=== PATIENT | male | born 1950 | race Caucasian/White ===

== ENCOUNTER 2019-05-11 18:55 | Inpatient (IN) | payer MEDICARE, MEDICAID ==
[~2019-05-11] VITALS: Ht 180.3 cm; Wt 79.8 kg
[2019-05-11] MEDS ORDERED: ACETAMINOPHEN 500 MG TAB PO ONE ×2 (19:57→20:00)
[2019-05-11] MEDS ORDERED: KETOROLAC TROMETH 60MG/2ML VIAL IM ONE (22:00)
[2019-05-11] MEDS ORDERED: ALBUTEROL SULF 2.5 MG/0.5ML(0.5%) NEB SOLN NEB ONE (22:00)
[2019-05-11] MEDS ORDERED: methylPREDNISolone SOD SUCC 125 MG/2 ML VL IM ONE (22:00)
[2019-05-11] MEDS ORDERED: IPRATROPIUM BROM 0.5 MG/2.5ML INH SOL NEB ONE (22:00)
[2019-05-11] MEDS ORDERED: cefTRIAXone SOD 1,000 MG VL IV ONE (23:00)
[2019-05-11] MEDS ORDERED: SODIUM CHLORIDE 0.9% 2,000 ML IV ONE (23:00)
[2019-05-11 23:23] LABS: Basophils # (auto) 0.1 uL; Eosinophils # (auto) 0.1 uL; Eosinophils % (auto) 1.1 % (0.0-7.0); Hemoglobin 13.5 g/dL (13.5-17.5); Lymphocytes # (auto) 1.2 uL; Lymphocytes % (auto) 18.2 % (10.0-50.0); Mean Corpuscular Hemoglobin 35.3 pg (28.0-32.0); Mean Corpuscular Hgb Conc. 35.6 g/dL (32.0-36.0); Monocytes # (auto) 0.5 uL; Monocytes % (auto) 7.3 % (0.0-12.0); Neutrophils # (auto) 4.9 uL; Neutrophils % (auto) 72.4 % (37.0-80.0); Nucleated Red Blood Cells % 0.1 %; Platelet Count (auto) 244 10^3/uL (140-450); Red Blood Cells 3.84 10^6/uL (4.5-5.90); Red Cell Distribution Width 14.6 % (11.8-14.3); White Blood Cell 6.8 10^3/uL (4.4-10.8)
[2019-05-11 23:37] LABS: INR 1.02 (0.9-1.15)
[2019-05-11 23:46] LABS: Albumin 2.9 g/dL (3.4-5.0); Calcium 7.6 mg/dL (8.5-10.1); Potassium 4.3 mmol/L (3.5-5.1)
[2019-05-11 23:51] LABS: Bilirubin, Total 0.3 mg/dL (0.2-1.0)
[2019-05-12] MEDS ORDERED: cefTRIAXone 1GM/50ML D5W 50 ML IV ONE
[2019-05-12 00:17] LABS: CRP High Sensitivity 0.227 mg/dL (< 0.3)
[2019-05-12] MEDS ORDERED: IOHEXOL 350 MG/ML 100ML IJ ONE (00:20)
[2019-05-12] MEDS ORDERED: MORPHINE SULFATE 4 MG/ML SYR/VIAL IV PRN (02:00)
[2019-05-12] MEDS ORDERED: SODIUM CHLORIDE 0.9% 1,000 ML IV SCH (02:00)
[2019-05-12] MEDS ORDERED: DOCUSATE SOD 100 MG CAP PO PRN (02:00)
[2019-05-12] MEDS ORDERED: HYDROcodone-ACET 5/325MG TAB PO PRN (02:00)
[2019-05-12] MEDS ORDERED: ACETAMINOPHEN 325 MG TAB PO PRN (02:00)
[2019-05-12] MEDS ORDERED: ONDANSETRON HCL 4 MG/2 ML VIAL IV PRN (02:00)
[2019-05-12 02:52] LABS: Urine Amorphous Crystal FEW /hpf (None Seen); Urine Bacteria FEW /hpf (None Seen); Urine Blood Negative /uL (Negative); Urine Hyaline Cast FEW /lpf (0 - 2); Urine Specific Gravity 1.026 (1.001-1.035); Urine WBC <1 /hpf (0 - 3)
[2019-05-12 02:59] LABS: Alcohol, Urine < 3.0 mg/dL (0-5); Amphetamine Screen, Urine NEGATIVE (NEGATIVE); Barbiturate Scree,Urine NEGATIVE (NEGATIVE); Benzodiazephine Screen, Urine NEGATIVE (NEGATIVE); Cannabinoid Screen, Urine NEGATIVE (NEGATIVE); Cocaine Screen, Urine NEGATIVE (NEGATIVE); Opiate Scree,Urine NEGATIVE (NEGATIVE); Phencyclidine Screen, Urine NEGATIVE (NEGATIVE)
--- NOTE | 2019-05-12 04:30 | NUR ---
[facility] admit from ER [address] admitted to [facility]. Patient oriented to GUERDA MCCOLLUM [facility], primary RN, unit, room, bed, and unit policies regarding patient care and visiting hours. Patient weighed by bedscale and encouraged to call if they need something. All questions and concerns addressed, patient verbalized understanding. Bed in lowest locked position, call light within reach, side rails up x2. Will continue to monitor Q1hr and PRN.
[2019-05-12 05:53] VITALS: BP 124/60
--- NOTE | 2019-05-12 07:30 | NUR ---
Opening Shift Note Assumed care of patient, awake and alert. No S/S of distress/SOB or pain. Instructed on POC and to call for assist PRN, will continue to monitor for changes Q1hr and PRN. Fall precautions in place per safety protocol.
--- NOTE | 2019-05-12 09:45 | NUR ---
Patient signed AMA form but states is coming back in 15 minutes. Patient has been gone for 30 minutes now. Will cont to monitor when patient returns.
[2019-05-12 09:47] LABS: Basophils # (auto) 0.1 uL; Eosinophils # (auto) 0 uL; Lymphocytes # (auto) 0.6 uL; Monocytes # (auto) 0.3 uL
[2019-05-12 09:49] LABS: Basophils % (auto) 1.7 % (0.0-2.0); Hematocrit 38.2 % (41.0-53.0); Hemoglobin 13.4 g/dL (13.5-17.5); Lymphocytes % (auto) 8.7 % (10.0-50.0); Mean Corpuscular Hemoglobin 35.3 pg (28.0-32.0); Mean Corpuscular Volume 100.8 fL (80.0-100.0); Monocytes % (auto) 4.8 % (0.0-12.0); Neutrophils # (auto) 5.8 uL; Neutrophils % (auto) 84.8 % (37.0-80.0); Platelet Count (auto) 242 10^3/uL (140-450); Red Blood Cells 3.79 10^6/uL (4.5-5.90); Red Cell Distribution Width 14.6 % (11.8-14.3); White Blood Cell 6.9 10^3/uL (4.4-10.8)
[2019-05-12] MEDS ORDERED: AZITHROMYCIN 500MG/ 250ML 250 ML IV SCH (10:00)
[2019-05-12] MEDS ORDERED: NEOMYCIN-POLYM-GRAM OPTH(EYE) SOL 10ML LEFTEYE SCH (10:00)
[2019-05-12 10:05] LABS: BUN/Creatinine Ratio 30.3; Calcium 8.1 mg/dL (8.5-10.1); Potassium 4.5 mmol/L (3.5-5.1)
--- NOTE | 2019-05-12 10:15 | NUR ---
Patient returned Attempted to give patient ABx, however found IV Pump maribel IV tubing, broken. Asked patient what had happen, patient states "I broke it because I was mad." Will look for new pump to administer IV ABx.
--- NOTE | 2019-05-12 12:30 | NUR ---
Patient not in room. Patient has been out of room for over an hour, MD Buchanan and extension service specialist in charge Ra aware of patient behavior. Charge nurse and MD state, to allow patient leave AMA. Patient has returned at this time. IV has been removed using sterile technique, patient tolerated well. Patient will be escorted out by security after he gathers his belongings.
--- NOTE | 2019-05-12 13:50 | NUR ---
Patient escorted outside, AMA.
--- NOTE | 2019-05-12 16:00 | NUR ---
assessment Patient left AMA prior to being assessed. Addendum: 05/13/19 at 1046 by Lindsay NASSAR Amended: Links added.
[2019-05-12] MEDS ORDERED: cefTRIAXone 1GM/50ML D5W 50 ML IV SCH (22:00)
== END 2019-05-12 13:50 | disposition left against medical advice (07) | DRG 121 ==
LOC: ER 19:02 → OVERFLOW 19:03 → WEST WING 05-12 04:42
PROVIDERS: ADMIT Hospitalist; ATTEND Internal Medicine
DX: H05.012 Cellulitis of left orbit (principal); J18.9 Pneumonia, unspecified organism; J45.901 Unspecified asthma with (acute) exacerbation; H10.32 Unspecified acute conjunctivitis, left eye; I70.0 Atherosclerosis of aorta; Z53.21 Procedure and treatment not carried out due to patient leaving prior to being seen by health care provider; E86.0 Dehydration; Z89.022 Acquired absence of left finger(s); Z72.89 Other problems related to lifestyle; Z59.0 Homelessness; Z79.899 Other long term (current) drug therapy
CPT/HCPCS: 36415; 71046; 71275; 80048; 80053; 80307; 81001; 83605; 84484; 85025; 85379; 85610; 85652; 86141; 87040; 93005; 94640; G0378; J0696; J1885

== ENCOUNTER 2019-05-12 17:29 | Emergency (ER) | payer MEDICARE, MEDICAID ==
[~2019-05-12] VITALS: Ht 180.3 cm; Wt 72.6 kg
[2019-05-12] MEDS ORDERED: ACETAMINOPHEN 500 MG TAB PO ONE ×2 (17:45→17:46)
[2019-05-12 18:23] LABS: Basophils # (auto) 0.1 uL; Basophils % (auto) 1.6 % (0.0-2.0); Eosinophils # (auto) 0 uL; Eosinophils % (auto) 0.3 % (0.0-7.0); Hematocrit 37.1 % (41.0-53.0); Hemoglobin 12.8 g/dL (13.5-17.5); Lymphocytes # (auto) 0.9 uL; Mean Corpuscular Hemoglobin 34.6 pg (28.0-32.0); Mean Corpuscular Hgb Conc. 34.6 g/dL (32.0-36.0); Monocytes # (auto) 0.5 uL; Monocytes % (auto) 7.1 % (0.0-12.0); Neutrophils # (auto) 5.3 uL; Platelet Count (auto) 237 10^3/uL (140-450); Red Blood Cells 3.71 10^6/uL (4.5-5.90); Red Cell Distribution Width 14.7 % (11.8-14.3); White Blood Cell 6.7 10^3/uL (4.4-10.8)
[2019-05-12 18:34] LABS: Albumin 3.3 g/dL (3.4-5.0); Potassium 4.3 mmol/L (3.5-5.1)
[2019-05-12 18:38] LABS: Bilirubin, Total 0.3 mg/dL (0.2-1.0); Total Protein 6.5 g/dL (6.4-8.2)
[2019-05-12] MEDS ORDERED: cefTRIAXone W LIDOCAINE 1 GM IM IM ONE (21:45)
[2019-05-12] MEDS ORDERED: cefTRIAXone SOD 1,000 MG VL ONE (22:51)
[2019-05-12 23:15] VITALS: BP 127/63
== END 2019-05-12 23:52 | disposition home or self-care (01) ==
LOC: ER 17:29
DX: S60.512A Abrasion of left hand, initial encounter (principal); S60.511A Abrasion of right hand, initial encounter; H10.32 Unspecified acute conjunctivitis, left eye; L03.211 Cellulitis of face; I21.4 Non-ST elevation (NSTEMI) myocardial infarction; J18.9 Pneumonia, unspecified organism; S61.412D Laceration without foreign body of left hand, subsequent encounter; R51 Headache; Z91.19 Patient's noncompliance with other medical treatment and regimen; W22.8XXA Striking against or struck by other objects, initial encounter; Y93.01 Activity, walking, marching and hiking; Y92.89 Other specified places as the place of occurrence of the external cause; Y99.8 Other external cause status
CPT/HCPCS: 36415; 70450; 70486; 73130; 80053; 83605; 83880; 84484; 85025; 96372; 99284; J0696